=== PATIENT | female | born 1960 | race Caucasian/White ===

== ENCOUNTER 2018-04-18 17:24 | Inpatient (IN) | payer OTHER ==
[~2018-04-18] VITALS: Ht 167.6 cm; Wt 104.8 kg
--- NOTE | ~2018-04-18 | EKG ---
[address] [address] ELECTROCARDIOGRAM REPORT Name: DANIEL ALFARO Room #: 431-P ADM IN M.R.#: [id number] Admission: 04/18/18 Attend Phys: Kelin Mcneil Discharge: Date of : 64 Report #: [id number] THIS REPORT FOR: //name// 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
--- NOTE | ~2018-04-18 | HC ---
[facility] [place] [address] CONSULTATION Name: DANIEL ALFARO Room #: 431-P [facility] [id number] Admission: 04/18/18 Attend Phys: Balwinder Borjas MD Discharge: 04/20/18 Date of : 64 Report #: [id number] THIS REPORT FOR: //name// CC: Kelin William DATE OF SERVICE: 04/18/2018 HISTORY OF PRESENT ILLNESS: This is a 57-year-old female patient who was evaluated by me for migraine headache. I reviewed the patient's records in the computer and I talked to the patient. I talked to the nurses looking after this patient. This patient was admitted here in 2013. She had some right-sided symptoms as well as visual spot in front of the right eye. They did an MRI of the brain and CT angio and that was unremarkable. Their discharge diagnosis was complicated migraine. She was admitted with what looks like right-sided symptoms. She was not using her right side very well. Following that she had a headache. They have tried multiple medications for this headache and I think she just received her first shot of fentanyl. She said the headache was better, the headache just came back. REVIEW OF SYSTEMS: Indicate that she gets headache. She takes Imitrex. Imitrex help her with the headache. On an average, she takes about 1 Imitrex per month. She does not take any narcotic. She does not believe the depression or anxiety makes it worse. She does have a history of hypertension and diabetes. She takes medication for that. She also is on Effexor. The patient also takes propranolol. She does have a history of high cholesterol and smoking and those are her vascular risk factors. This was her relevant 14-point review of system. PAST MEDICAL HISTORY: Positive for episode which was pretty similar to the one she is having now. However, the episode was much less severe than this one is. FAMILY HISTORY: Unremarkable. SOCIAL HISTORY: She has a history of smoking. PHYSICAL EXAMINATION: Indicate she is alert. She is responsive. She can follow simple commands. Her speech, concentration, fund of knowledge and memory is at her baseline. Cranial nerve examination 2-12 looks unremarkable. The spot she had in front of the right eye has disappeared. She has symmetrical strength, sensation, reflexes and tone in all 4 extremities. I could not look at the fundus because of photophobia. She is an obese individual who does not have any dysmorphic features of eyes, [address] [address] CONSULTATION Name: DANIEL ALFARO Room #: 431-P [facility] [id number] Admission: 04/18/18 Attend Phys: Balwinder Borjas MD Discharge: 04/20/18 Date of : 64 Report #: [id number] ears and face. Her vision and hearing looks adequate. Cardiac examination is unremarkable. No respiratory difficulty or rhonchi was noticed. No edema, cyanosis or jaundice. The patient's blood pressure is 133/56, respirations 16, pulse is 73, temperature is 98.2. LABORATORY DATA: WBC count is 7.2 and is normal. Her GFR is 104. She does have some elevated enzymes, but that was present even in 2013. IMPRESSION: This is most likely complicated migraine. The character of the headache is different. I will go ahead and do a CT angio to make sure there is no pathology there. The patient was instructed to stop smoking altogether. She should follow up with the neurologist. She received fentanyl and I will give a call to Dr. Borjas. Because of her size, I think we can limit her narcotic and as an outpatient if she needs medication, she can try Fiorinal and if she takes it every couple of weeks like she is taking that should not be a problem. We do need to check a sed rate on her. RECOMMENDATIONS: If her CT angio is normal for which there is a good chance and if her headache resolves, from my perspective she can be dismissed. I will call Dr. Borjas and discuss the patient with him. <ELECTRONICALLY SIGNED> By: Jonathon Lorenzana MD 04/21/18 1659 [id number] [id number] Jonathon Lorenzana MD /nt
[~2018-04-18 17:24] MED LIST: AMARYL4 MG PO; AMOXICILLIN 50500 MG PO; ASPIRIN325 PO; ATENOLOL 25 MG25 M1 PO; ATENOLOL 50MG T50 M1 PO; COLACE100 MG PO; COZAAR 50 MG TA50 M2 PO; COZAAR100 MG PO; EFFEXOR XR75 MG PO; GLUCOPHAGE XR500 MG PO; GLYBURIDE 1.21.25 MG; HYDROCHLOROTHIA25 M2 PO; HYDROCODONE-AP1 EAC6 PO; IMITREX100 MG PO; INDERAL LA80 MG PO; MELATONIN3 MG PO; METFORMIN HCL500 MG PO; NYSTATIN15 GM; PROAIR HFA8.5 GM INH; SENOKOT-S1 TA1 PO; TYLENOL325 MG PO; UNICOMPLEX M TA1 TA1 PO; VALTREX1000 MG PO; ZOCOR20 MG PO
[2018-04-18 17:30] VITALS: BP 180/80
[2018-04-18 18:40] LABS: ABSOLUTE NEUTROPHILS 5.3 thou/uL (1.4-8.2); BASOPHILS 0.1 % (0.0-2.0); EOSINOPHILS 1.5 % (0.0-3.0); HEMATOCRIT 43.7 % (37.0-47.0); HEMOGLOBIN 15.2 gm/dL (12.0-15.0); LYMPHOCYTES 18.3 % (24.0-44.0); MCH 33.1 pg (26.0-34.0); MCHC 34.8 g/dL (28.0-37.0); MONOCYTES 6.1 % (1.0-8.0); PLATELET COUNT 127 thou/uL (150-400); RDW 13.3 % (10.5-14.5); WBC 7.2 thou/uL (4.0-11.0)
[2018-04-18 18:46] LABS: CALCIUM 9.9 mg/dL (8.5-10.1); CREATININE 0.6 mg/dL (0.6-1.0)
[2018-04-18 20:00] VITALS: BP 128/47
[2018-04-18 20:16] VITALS: BP 163/77
[2018-04-18] MEDS ORDERED: JARDIANCE25 MG PO (20:40)
[2018-04-18] MEDS ORDERED: ATIVAN1 MG PO (20:44)
[2018-04-18] MEDS ORDERED: MELATONIN3 MG PO (20:46)
[2018-04-18] MEDS ORDERED: MULTIVITAMINS1 EAC7 PO (20:47)
[2018-04-18] MEDS ORDERED: ASPIR-TRIN325 MG PO (20:47)
[2018-04-18 21:07] VITALS: BP 148/63
[2018-04-19 04:39] VITALS: BP 136/70
[2018-04-19 08:43] VITALS: BP 133/56
[2018-04-19 20:08] VITALS: BP 137/67
[2018-04-20 04:02] LABS: HEMATOCRIT 40.8 % (37.0-47.0); HEMOGLOBIN 13.8 gm/dL (12.0-15.0); MCH 32.4 pg (26.0-34.0); MCHC 33.9 g/dL (28.0-37.0); MCV 95.6 fL (80.0-100.0); RBC 4.27 mil/uL (4.20-5.00); RDW 13.3 % (10.5-14.5)
[2018-04-20 04:10] LABS: CALCIUM 9.7 mg/dL (8.5-10.1); CREATININE 0.6 mg/dL (0.6-1.0); POTASSIUM 4.1 mmol/L (3.5-5.1)
[2018-04-20 04:47] VITALS: BP 140/91
[2018-04-20 07:45] VITALS: BP 11/69
[2018-04-20] MEDS ORDERED: BUTALB-APAP-CA1 EACH PO (13:16)
[2018-04-20 13:43] VITALS: BP 115/69
[2018-04-20 13:48] VITALS: BP 115/69
== END 2018-04-20 14:56 | disposition home or self-care (01) | DRG 103 ==
LOC: ER 17:24 → 4E 19:16 → EROBS 19:16 → ER 21:08 → 4E 21:08
PROVIDERS: Emergency Medicine; Hospitalist
DX: G43.909 Migraine, unspecified, not intractable, without status migrainosus (principal); E11.9 Type 2 diabetes mellitus without complications; I10 Essential (primary) hypertension; E78.00 Pure hypercholesterolemia, unspecified; F17.210 Nicotine dependence, cigarettes, uncomplicated; E78.5 Hyperlipidemia, unspecified; J06.9 Acute upper respiratory infection, unspecified; J40 Bronchitis, not specified as acute or chronic; Z79.82 Long term (current) use of aspirin; Z79.899 Other long term (current) drug therapy; Z28.21 Immunization not carried out because of patient refusal
CPT/HCPCS: 10183

== ENCOUNTER 2018-09-21 11:46 | Emergency (ER) | payer OTHER ==
[~2018-09-21] VITALS: Ht 167.6 cm; Wt 105.7 kg
[~2018-09-21 11:46] MED LIST changes: +ASPIR-TRIN325 MG PO; +ATIVAN1 MG PO; +BACTRIM DS TAB1 EACH PO; +BUTALB-APAP-CA1 EACH PO; +JARDIANCE25 MG PO; +MULTIVITAMINS1 EAC7 PO
[2018-09-21] MEDS ORDERED: ZOFRAN ODT4 MG PO (16:35)
[2018-09-21] MEDS ORDERED: KEFLEX500 M1 PO (16:35)
[2018-09-21] MEDS ORDERED: NORCO 5-325 TA1 EACH PO (16:35)
[2018-09-21 17:16] VITALS: BP 141/80
== END 2018-09-21 17:17 ==
LOC: ER 11:46
DX: L02.511 Cutaneous abscess of right hand (principal); L02.01 Cutaneous abscess of face; E11.9 Type 2 diabetes mellitus without complications; I10 Essential (primary) hypertension; E78.00 Pure hypercholesterolemia, unspecified; G43.909 Migraine, unspecified, not intractable, without status migrainosus; Z90.49 Acquired absence of other specified parts of digestive tract; F17.210 Nicotine dependence, cigarettes, uncomplicated

== ENCOUNTER 2018-09-24 07:02 | Inpatient (IN) | payer OTHER ==
[~2018-09-24] VITALS: Ht 152.4 cm; Wt 105.7 kg
[~2018-09-24 07:02] MED LIST changes: +KEFLEX500 M1 PO; +NORCO 5-325 TA1 EACH PO; +ZOFRAN ODT4 MG PO
[2018-09-24 14:00] VITALS: BP 151/78
--- NOTE | 2018-09-24 14:56 | NUR ---
PATIENT ARRIVED ON UNIT ALERT XS 4 STATES PAIN WILL HAVE DOCTOR OR NCP ASSESS. ADMISSION PAPERWORK COMPLETED. WILL HAVE ECHO TOMMORROW. IV TO BE PUT IN PLACE. CONSULTS IN PLACE ORDERED.
[2018-09-24 15:50] LABS: ABSOLUTE NEUTROPHILS 5.5 thou/uL (1.4-8.2); BASOPHILS 0.1 % (0.0-2.0); EOSINOPHILS 2.5 % (0.0-3.0); HEMATOCRIT 40.3 % (37.0-47.0); HEMOGLOBIN 13.7 gm/dL (12.0-15.0); LYMPHOCYTES 22.8 % (24.0-44.0); MCH 32.5 pg (26.0-34.0); MCV 95.6 fL (80.0-100.0); MONOCYTES 8.3 % (1.0-8.0); PLATELET COUNT 190 thou/uL (150-400); POLYS 66.3 % (36.0-66.0); RBC 4.21 mil/uL (4.20-5.00); RDW 12.8 % (10.5-14.5); WBC 8.3 thou/uL (4.0-11.0)
--- NOTE | 2018-09-24 16:00 | NUR ---
WOUND CARE PICURES OF RIGHT HAND/ PALM AREA AND RIGHT NECK AREA TAKEN AND IN CHART.
[2018-09-24 16:11] LABS: ALBUMIN 4.1 g/dL (3.4-5.0); CALCIUM 10.4 mg/dL (8.5-10.1); CREATININE 0.8 mg/dL (0.6-1.0); MAGNESIUM 1.7 mg/dL (1.8-2.4); POTASSIUM 4.2 mmol/L (3.5-5.1); TOTAL BILIRUBIN 0.4 mg/dL (<0.1-1.0); TOTAL PROTEIN 7.8 g/dL (6.4-8.2)
[2018-09-24 19:31] VITALS: BP 110/54
[2018-09-24] MEDS ORDERED: OZEMPIC0.25 MG/0. SUBQ (20:18)
[2018-09-24] MEDS ORDERED: DICLOFENAC SODI75 MG PO (20:24)
--- NOTE | 2018-09-25 03:55 | NUR ---
ASSUMED CARE AT 1900, ASSESSMENT COMPLETED. PT DENIES SOA OR NAUSEA. REPORTS PAIN IN HAND IS TOLERABLE, DOESN'T REQUIRE ANY PAIN MEDS THIS SHIFT. IV ABX INFUSING OVERNIGHT. NPO AT MIDNIGHT FOR I&D OF TWO WOUND SITES. DRESSING TO RIGHT HAND C/D/I, AND BANDAIDS IN PLACE OVER SITE ON THE NECK. PT UP AD RAZIA IN ROOM, NO OTHER CONCERNS, WILL CONTINUE TO MONITOR.
[2018-09-25 04:20] VITALS: BP 126/63
[2018-09-25 07:49] VITALS: BP 111/45
--- NOTE | 2018-09-25 08:14 | HC ---
[facility] [place] [address] [place] [address] CONSULTATION Name: DANIEL ALFARO Room #: 420-P [facility] IN M.R.#: [id number] Admission: 09/24/18 ������������������ Attend Phys: Aryan Patino MD Discharge: ������������������ Date of : 64 Report #: [id number] THIS REPORT FOR: //name// CC: Aryan Chow DATE OF SERVICE: 09/24/2018 TYPE OF REPORT: Infectious disease consultation. ATTENDING PHYSICIAN: Gumaro Chow M.D. REASON FOR CONSULTATION: Staphylococcus aureus infection, right occipital region, left lower eyelid and right hand palm. HISTORY OF PRESENT ILLNESS: The patient is a 58-year-old white woman who had developed skin lesions on the above-mentioned areas. They were cultured and Staphylococcus aureus, oxacillin sensitive was isolated by her primary physician. She was initially prescribed Bactrim-DS 1 tablet b.i.d., but she failed to improve. She is evaluated in the wound care center and undergoes incision and drainage of the right hand lesion and she was advised admission. The patient not systemically ill. PAST MEDICAL HISTORY: 1. History of diabetes mellitus for a number of years, on treatment with metformin and glimepiride. 2. History of hypertension. 3. Dyslipidemia. 4. Hypertension. 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 This diagnosis was reached through the skin biopsy. I believe the patient had cholecystectomy in the past as well as . SOCIAL HISTORY: See H and P, old records. FAMILY HISTORY: See H and P, old records. REVIEW OF SYSTEMS: As above and essentially noncontributory. PHYSICAL EXAMINATION: GENERAL: A well-developed, nontoxic-looking woman, in no distress. VITAL SIGNS: Pending. HEENMT: Head normocephalic and atraumatic. On the right occipital area behind the right ear lobe, there is an area of purulence and abscess formation that is spontaneously draining. There is some crusting in the tissues. There is another lesion on the left lower eyelid much smaller as well as a lesion on the [facility] [address] [address] CONSULTATION Name: DOMINICDANIEL SAEZ Room #: 420-P [facility] IN [facility].#: [id number] Admission: 09/24/18 ������������������ Attend Phys: Aryan Patino MD Discharge: ������������������ Date of : 64 Report #: [id number] palm of the right hand. Mouth revealed upper and lower plates. NECK: Supple. No thyromegaly or lymphadenopathy. LUNGS: Clear to auscultation. BREASTS: Deferred. HEART: S1 and S2. No gallop or murmur. ABDOMEN: Soft. No masses or megaly. EXTREMITIES: Reveal palpable maculopapular lesions on both forearms. The patient readily tells me it is related to her granuloma annulare. NEUROLOGICAL: Grossly within normal limits. LABORATORY DATA: Cultures obtained at her primary physician revealed growth of Staphylococcus aureus, oxacillin sensitive. ASSESSMENT: 1. Staphylococcus aureus abscesses, right occipital region, left lower eyelid and palm of right hand 2. Diabetes mellitus. SUGGESTIONS: Recommend Ancef 2 grams IV every 8 hours. Local wound care. Further recommendation pending results of laboratory testing. Dr. Gumaro Chow, thank you for requesting my suggestions. ��������������������������������������������� <ELECTRONICALLY SIGNED> ���������������������������������������� By: Ronal Barry MD ��������������������������������������������� 09/25/18 0814 1313 2245 Ronal Barry MD /nt
[2018-09-25 08:38] LABS: HEMATOCRIT 40.2 % (37.0-47.0); HEMOGLOBIN 13.7 gm/dL (12.0-15.0); MCH 32.5 pg (26.0-34.0); MCHC 33.9 g/dL (28.0-37.0); MCV 95.7 fL (80.0-100.0); RBC 4.2 mil/uL (4.20-5.00); WBC 5.6 thou/uL (4.0-11.0)
[2018-09-25 08:45] LABS: CALCIUM 9.7 mg/dL (8.5-10.1); CREATININE 0.7 mg/dL (0.6-1.0); POTASSIUM 4.9 mmol/L (3.5-5.1)
[2018-09-25 08:50] LABS: APTT 26.6 Seconds (24.5-32.8); INR 1.1; PROTIME 11.1 Seconds (9.3-11.4)
--- NOTE | 2018-09-25 09:19 | TEE ---
[facility] [address] [place] [address] TRANSESOPHAGEAL ECHOCARDIOGRAM Name: DANIEL ALFARO Room #: 420-P [facility] IN M.R.#: [id number] ������������� Admission: 09/24/18 ������������� Attend Phys: Aryan Patino MD Discharge: ��� ������������� ��� Date of : 64 Date of Service: 09/25/189[address] �� Report #: [id number] �������� ��������������������������������������������[id number] THIS REPORT FOR: //name// APPROVED REPORT Study performed: 09/25/2018 08:37:51 EXAM: Transesophageal Echocardiogram Patient Location: [facility] Room #: 420 Status: routine BSA: 1.99 HR: 66 bpm BP: 123/54 mmHg Rhythm: NSR Other Information Study Quality: Good Indications Multiple septic emboli, possible cardioembolic source. Procedure After obtaining informed consent, patient underwent transesophageal echo in the [employer]. Type of Sedation : Conscious Sedation Sedation was achieved intravenously with: Versed (4) Fentanyl (50) Transesophageal probe was inserted and advanced into esophagus without difficulty by Garry Brown MD. The KRISTINA was performed without complications. Throughout the procedure, the blood pressure, pulse oximetry, cardiac rhythm, and rate were monitored. The patient tolerated the procedure without adverse effects. Recovery from conscious sedation was uneventful and vital signs were stable. Left Ventricle The left ventricle is normal size. There is normal LV segmental wall motion. Left ventricular systolic function is normal. LVEF is 60-65%. Right Ventricle The right ventricle is normal size. The right ventricular systolic [facility] [address] [place] [address] TRANSESOPHAGEAL ECHOCARDIOGRAM Name: DANIEL ALFARO Room #: 420-P ADM IN M.R.#: [id number] ������������� Admission: 09/24/18 ������������� Attend Phys: Aryan Patino MD Discharge: ��� ������������� ��� Date of : 64 Date of Service: 09/25/18 0918 �� Report #: [id number] �������� ��������������������������������������������[id number] function is normal. Atria No thrombus is visualized in the left atrium or appendage. No shunting noted by contrast bubble injection. The right atrium size is normal. Aortic Valve Aortic valve is trileaflet. No aortic regurgitation is present. There is no aortic valvular stenosis. Mitral Valve The mitral valve is normal in structure. Mild mitral regurgitation. No evidence of mitral valve stenosis. Tricuspid Valve The tricuspid valve is normal in structure. Trace tricuspid regurgitation. Pulmonic Valve The pulmonary valve is normal in structure. Trace pulmonic regurgitation. Great Vessels The aortic root is normal in size. The ascending aorta is normal in size. IVC is normal in size and collapses >50% with inspiration. Pericardium There is no pericardial effusion. Critical Notification Physician Notified <Conclusion> Left ventricular systolic function is normal. There is normal LV segmental wall motion. LVEF is 60-65%. No thrombus is visualized in the left atrium or appendage. No shunting noted by contrast bubble injection. Aortic valve is trileaflet. No aortic regurgitation or stenosis. The mitral valve is normal in structure. Mild mitral regurgitation. There is no pericardial effusion. [facility] [address] [place] [address] TRANSESOPHAGEAL ECHOCARDIOGRAM Name: DOMINICDANIEL SAEZ Room #: 420-P [facility] IN .R.#: [id number] ������������� Admission: 09/24/18 ������������� Attend Phys: Aryan Patino MD Discharge: ��� ������������� ��� Date of : 64 Date of Service: 09/25/18917 �� Report #: [id number] �������� ��������������������������������������������[id number] No vegetations ��������������������������������������������� <ELECTRONICALLY SIGNED> ���������������������������������������� By: Garry Brown MD, [facility] ��������������������������������������������� 09/25/18917 7 7 Garry Brown MD, FAC /INF
--- NOTE | 2018-09-25 09:19 | NUR ---
PT CONT TO RECOVER POST KRISTINA. VSS. DR. Jimy SARAVIA HERE TO SEE PT AT BEDSIDE.
--- NOTE | 2018-09-25 09:49 | NUR ---
PT WAKES TO NAME AND RESPONDS APPROP. BP RESPONDS PT WAKES. IVF GIVEN FOR SBP 80-90. SBP NOW 105-110. DENIES PAIN. NO C/O. REPORT CALLED TO FLOOR RN.
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
--- NOTE | 2018-09-25 13:30 | NUR ---
WOUND CONSULT: PT. WAS SEEN TODAY BY DR. ANSARI AND MYSELF. PT. WAS ADMITTED FROM THE WOUND CLINIC YESTERDAY FOR EVALUATION OF ABCESS TO HER RIGHT HAND AND NECK. PT. WILL BE GOING TO OR TODAY FOR DEBRIDEMENT TODAY. RECOMMENDATIONS: WOUND CARE TO ALL SITES: GENTLY CLEANSE WITH WOUND CLEANSER OR NORMAL SALINE, COVER WITH OPTIFOAM BORDER, COMPLETE CARES M/W/F AND PRN SOILAGE. PT. AND STAFF NURSE WERE INSTRUCTED ON WOUND CARE.
[2018-09-25 13:51] VITALS: BP 128/57
[2018-09-25 16:20] VITALS: BP 149/62
--- NOTE | 2018-09-25 16:36 | NUR ---
RECEIVED PT BACK FROM PACU S/P I&D OF RIGHT HAND AND RIGHT WOUND BEHIND EAR. PT DENIES PAIN AT THIS TIME. PT IS AWAKE, ALERT/ORIENTED X4. PT APPEARS CYANOTIC TO LIPS BUT O2 SAT 90'S ON ROOM AIR, NO APPARENT RESP DISTRESS. DRESSING TO RIGHT HAND IS CDI. DRESSING BEHIND RIGHT EAR IS INTACT WITH MINIMAL BLOOD NOTED. FAMILY AT BEDSIDE. VITAL SIGNS STABLE.
--- NOTE | 2018-09-26 04:04 | NUR ---
PATIENT ALERT AND ORIENTED X4. UP ADLIB IN HALLWAY. IVF INFUSING W/O COMPLICATION. RIGHT HAND PAIN, MEDICATED AND USE OF ICE PACK WITH ELEVATION WHICH GAVE RELIEF ENOUGH TO SLEEP. BS MONITORED PER ORDER. RESTING QUIETLY. WILL MONITOR.
[2018-09-26 06:38] LABS: HEMATOCRIT 37.6 % (37.0-47.0); HEMOGLOBIN 12.6 gm/dL (12.0-15.0); MCH 32.3 pg (26.0-34.0); MCHC 33.5 g/dL (28.0-37.0); MCV 96.4 fL (80.0-100.0); RBC 3.9 mil/uL (4.20-5.00); RDW 13.1 % (10.5-14.5); WBC 5.2 thou/uL (4.0-11.0)
[2018-09-26 06:58] LABS: CALCIUM 9.1 mg/dL (8.5-10.1); CREATININE 0.6 mg/dL (0.6-1.0); MAGNESIUM 1.7 mg/dL (1.8-2.4); POTASSIUM 4.1 mmol/L (3.5-5.1)
[2018-09-26 07:50] VITALS: BP 114/51
--- NOTE | 2018-09-26 16:14 | NUR ---
ASSUMED PATIENT AND CARES AT 0715, PATIENT IN BED ON PHONE AND WATCHING TV, A&OX4, LEFT FOREARM SALINE LOCK PATENT WITH NS @100ML/HR INFUSING, RIGHT HAND ELEVATED ON PILLOW WITH ICE PACK, DRESSING TO RIGHT HAND AND RIGHT NECK NOTED WITH SMALL DRAINAGE, RECEIVED PRN PAIN MEDICATION PRIOR TO SHIFT CHANGE, PERSONAL BELONGINGS AND CALL LIGHT IN REACH, WILL CONTINUE TO MONITOR
[2018-09-26 19:28] VITALS: BP 146/80
--- NOTE | 2018-09-27 04:11 | NUR ---
PATIENT ALERT AND ORIENTED X4. UP ADLIB IN ROOM. IVF INFUSING W/O COMPLICATION. MEDICATED FOR PAIN X1 DURING THE NIGHT AT TIME OF NOTE. BS MONITORED PER ORDER. NO BM FROM [facility] GIVEN ON FRIDAY MORNING. DRESSINGS DRY AND INTACT. WILL MONITOR.
[2018-09-27 07:45] VITALS: BP 143/83
--- NOTE | 2018-09-27 10:11 | NUR ---
PATIENT CARE WAS ASSUMED AT 0715.PATIENT IS ALERT AND ORIENTED X4.PATIENT HAS DRESSINGS ON BOTH SITES INTACT.PATIENT HAS NO COMPLAINS OF PAIN AT THIS TIME. PATIENT WAS CONCERN HAVING A BM TODAY, HAS NOT HAD BM IN A FEW DAYS.IV IS INTACT INFUSING FLUIDS.PATIENT IS UP ABLIB WITHOUT ANY ISSUES.CALL LIGHT, PHONE, AND PERSONAL BELONGINGS ARE WITHIN REACH.
--- NOTE | 2018-09-27 11:16 | NUR ---
PATIENT CARE WAS ASSUMED AT 0715.PATIENT IS ALERT AND ORIENTED X4.PATIENT HAS HAD COLON PREP THROUGHOUT THE NIGHT.PATIENT HAS HAD LOOSE STOOL.PATIENT WILL HAVE COLONSCOPY IN THE AM.PATIENT HAS IV INTACT WITH FLUIDS INFUSING.PATIENT HAS BEEN NPO AFTER MIDNIGHT.PATIENT IS ABLE TO AMBULATE WITH STANDBY ASSIST WITH WALKER.PATIENT HAS SOME STRESS INCONTINENCE, AND HAS A BRIEF IN PLACE.PATIENT HAD VITALS. NO PAIN AT THIS TIME.CALL LIGHT,PHONE, AND PERESONAL BELONGINGS ARE WITHIN REACH.
[2018-09-27 19:53] VITALS: BP 187/95
--- NOTE | 2018-09-28 06:28 | NUR ---
PATIENT ALERT AND ORIENTED X4. UP ADLIB, WALKING IN HALLWAY. IVF INFUSING W/O COMPLICATION. B/P AND TEMP UP AT BEGINNING OF SHIFT: TEMP 100.7 AND B/P 187/95. MEDICATED FOR BOTH PER PRN WITH GOOD RESULTS: TEMP 98.1 AND B/P 144/80. PATIENTS FACE WAS FLUSH WITH SWELLING UNDER EYES. DENIES PAIN. DRESSINGS ARE D/I. BS MONITORED PER ORDER. RESTING QUIETLY, WILL MONITOR.
[2018-09-28 09:50] VITALS: BP 108/47
--- NOTE | 2018-09-28 10:16 | NUR ---
SW reviewed chart and spoke with nursing. Pt was transferred to [facility] from and is progressing towards goals for discharge. Per ID, pt will be on PO abx at time of discharge. Plan is for pt to d/c home when medically stable. [facility]UTH is following to assist as needed with discharge planning.
[2018-09-28] MEDS ORDERED: KEFLEX500 M1 PO (14:04)
[2018-09-28] MEDS ORDERED: ACETAMINOPHEN325 M1 PO (14:04)
[2018-09-28] MEDS ORDERED: HYDROCODON-ACE1 EAC7 PO (14:04)
[2018-09-28 17:12] VITALS: BP 187/95
--- NOTE | 2018-09-28 17:13 | NUR ---
ON-GOING ASSESSMENT: PT HAS ORDERS TO DISCHARGE HOME TODAY WITH HH. CM MET WIHT PATIENT AT THE BEDSIDE TO DISCUSS [facility] CAN ACCEPT PATIENT FOR HH. PT STATING SHE DOES NOT WANT HH OR FEEL SHE NEEDS IT. 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 PT STATES HER DAUGHTERS ALSO CAN HELP HER IF NEEDED. PT DECLINING HH. CM NOTIFIED [facility] WELL ATTENDING.
--- NOTE | 2018-09-28 17:25 | NUR ---
WOUND FOLLOW UP: PT. WAS SEEN TODAY BY DR. TAYLOR AND MYSELF. PT. WOUNDS ARE CLINCALLY BETTER TODAY. RECOMMENDATIONS: CONTINUE WITH CURRENT PLAN OF CARE. PT. AND STAFF NURSE WERE INSTRUCTED ON PLAN OF CARE.
--- NOTE | 2018-09-28 18:57 | NUR ---
ASSUMED CARE OF PATIENT AT 0715, PATIENT ALERT AND ORIENTED X 4. PATIENT UP AD RAZIA. PATIENT DENIES PAIN THIS SHIFT. PATIENT HAS RIGHT HAND WOUND AND RIGHT NECK WOUND, DRESSINGS C/D/I. PATIENT HAD MANY COMPLIANTS
--- NOTE | 2018-09-30 09:15 | HC ---
[facility] [place] [address] CONSULTATION Name: DOMINICDANIEL Roly Room #: 223-P [facility] IN M.R.#: [id number] Admission: 09/24/18 ������������������ Attend Phys: Aryan Patino MD Discharge: 09/28/18 ������������������ Date of : 64 Report #: [id number] THIS REPORT FOR: //name// CC: Aryan Chow DATE OF SERVICE: 09/25/2018 WOUND CARE CONSULTATION CHIEF COMPLAINT: Multiple abscesses. REQUESTING PHYSICIAN: Dr. Aryan Patino. HISTORY OF PRESENT ILLNESS: This is a 58-year-old white female with past medical history of diabetes who was admitted yesterday through the wound center for general surgical evaluation and drainage of an abscess behind her right ear. The patient stated that approximately on 09/14/2018, she noted she had a lump behind her right ear. She went to her primary care physician who now twice has done a bedside incision and drainage. The patient states, however, the abscess has been persistent and actually has gotten larger. The patient when seen in the wound center yesterday was felt the patient required surgical debridement in the operating room with sedation as well as IV antibiotics. The patient was seen by Dr. Barry and is getting the antibiotic coverage at this time. Dr. Balderrama has seen the patient and will provide surgical debridement of the wound behind the ear. The patient also states that she noted she had an abscess on the palmar aspect of her right hand, which was I and D'd yesterday in the wound clinic. 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 The patient does have a chronic skin condition that has been well controlled. The patient denies fevers or chills. The patient denies any other associated complaints. PAST MEDICAL HISTORY: Significant for diabetes, hypertension, hypercholesterolemia, and chronic skin condition which is stable. CURRENT MEDICATIONS: Multiple including metformin. I reviewed the patient's medication list. DRUG ALLERGIES: None. SOCIAL HISTORY: The patient smokes half pack of cigarettes daily. Denies alcohol use. 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 FAMILY HISTORY: Not pertinent to current medical condition. [facility] [address] [place] [address] CONSULTATION Name: DANIEL ALFARO Room #: 223-P [facility] IN [facility]#: [id number] Admission: 09/24/18 ������������������ Attend Phys: Aryan Patino MD Discharge: 09/28/18 ������������������ Date of : 64 Report #: [id number] REVIEW OF SYSTEMS: CONSTITUTIONAL: The patient denies fevers, but has had intermittent chills and sweats. HEENT: Eyes: No complaints. ENT: No complaints. NEUROLOGIC: The patient denies numbness, tingling, weakness in arms or legs. The patient does have occasional headache consistent with migraines. CARDIAC: The patient denies chest pain, palpitations, peripheral edema. RESPIRATORY: The patient denies shortness of breath, cough or wheezes. GASTROINTESTINAL: The patient denies nausea, vomiting or abdominal pain. GENITOURINARY: The patient denies urgency or frequency. MUSCULOSKELETAL: No complaints. SKIN: The patient has an abscess behind her right ear as well as an abscess on the palmar aspect of the right hand and a lesion below her left eye. PHYSICAL EXAMINATION: VITAL SIGNS: Temp 36.5, pulse 68, respiratory rate 18, BP 143/83. GENERAL: This is an alert and oriented x 3, pleasant, obese white female who is in no obvious distress. HEENT: Normocephalic. There is a pustular lesion behind the right ear, which is tender to palpation with erythema, warmth, and purulent drainage. It is fluctuant but no significant odor. It is tender to palpation. No other associated ulcerations or abscesses are noted on the scalp, however below the left eyelid is an erythematous region, which is tender to palpation but not fluctuant. There are no signs of any drainage. Pupils are round. Sclerae white. Mucous membranes are moist with no intraoral lesions. NECK: Supple and otherwise nontender with moderate lymphadenopathy, specifically around the area of the right posterior auricular abscess. LUNGS: Clear. HEART: Regular. ABDOMEN: Obese, soft, otherwise nontender. EXTREMITIES: The patient moves all extremities without difficulty. Distal neurovascular is otherwise intact. Palmar aspect of the right hand over the hypothenar eminence is a drained abscess which is tender to palpation, but no signs of any actual purulent drainage at this time. There is minimal erythema. No other associated lesions noted in the rest of the fingers on the right hand. Left hand and fingers are totally without any signs of abscesses. NEUROLOGIC: Cranial nerves 2-12 are grossly intact. Motor and sensory grossly intact. LABORATORY VALUES: White count 8.3, hemoglobin 13.7. Albumin is 4.1. IMPRESSION: 1. Right posterior auricular abscess. 2. Right palmar abscess on the hypothenar eminence, status post I and D. 3. Erythematous lesion on the lower eyelid. 4. Diabetes mellitus type 2. [address] [address] CONSULTATION Name: DANIEL ALFARO Room #: 223-P [facility] M.R.#: [id number] Admission: 09/24/18 ������������������ Attend Phys: Aryan Patino MD Discharge: 09/28/18 ������������������ Date of : 64 Report #: [id number] 5. Obesity. 6. Generalized debility. 7. History of chronic superficial skin condition. PLAN: Infectious Disease and General Surgery have been consulted. I will continue to follow the patient from a wound care point of view. We will use Bactroban to the palmar aspect of the hand as well as Optifoam over the right posterior auricular abscess pending I and D. Continue IV antibiotics. We will maximize the patient's oral protein supplementation for continued healing. We will continue to follow the patient. I appreciate the ability to consult. ��������������������������������������������� <ELECTRONICALLY SIGNED> ���������������������������������������� By: Gumaro Chow MD ��������������������������������������������� 09/30/18 0915 [id number] Gumaro Chow MD /nt
== END 2018-09-28 18:26 | disposition home health service (06) | DRG 988 ==
LOC: HYPER 07:02 → 4E 13:20 → SICU 09-25 14:14
PROVIDERS: Nurse Practitioner; Surgery; ADMIT Internal Medicine
PROC: B24BZZ4 Ultrasonography of Heart with Aorta, Transesophageal (ICD-10-PCS; principal; 2018-09-25)
PROC: 0J940ZZ Drainage of Right Neck Subcutaneous Tissue and Fascia, Open Approach (ICD-10-PCS; 2018-09-25)
PROC: 0J9J0ZZ Drainage of Right Hand Subcutaneous Tissue and Fascia, Open Approach (ICD-10-PCS; 2018-09-25)
DX: I76 Septic arterial embolism (principal); L02.511 Cutaneous abscess of right hand; Z68.42 Body mass index [BMI] 45.0-49.9, adult; L03.113 Cellulitis of right upper limb; L03.221 Cellulitis of neck; I74.9 Embolism and thrombosis of unspecified artery; E83.52 Hypercalcemia; L92.0 Granuloma annulare; H60.01 Abscess of right external ear; B95.61 Methicillin susceptible Staphylococcus aureus infection as the cause of diseases classified elsewhere; L72.3 Sebaceous cyst; F41.9 Anxiety disorder, unspecified; E11.9 Type 2 diabetes mellitus without complications; E66.9 Obesity, unspecified; G43.909 Migraine, unspecified, not intractable, without status migrainosus; E78.00 Pure hypercholesterolemia, unspecified; F17.210 Nicotine dependence, cigarettes, uncomplicated; I10 Essential (primary) hypertension; E78.5 Hyperlipidemia, unspecified; Z79.84 Long term (current) use of oral hypoglycemic drugs; Z98.891 History of uterine scar from previous surgery; Z90.49 Acquired absence of other specified parts of digestive tract; Z98.51 Tubal ligation status; Z86.14 Personal history of Methicillin resistant Staphylococcus aureus infection
CPT/HCPCS: 10783; 15002; 50010; 50101; 50386; 50403; 62110; 62900; 70005

== ENCOUNTER → 2018-10-06 | Outpatient (CLI) | payer OTHER ==
[~2018-10-06] MED LIST changes: +ACETAMINOPHEN325 M1 PO; +DICLOFENAC SODI75 MG PO; +HYDROCODON-ACE1 EAC7 PO; +OZEMPIC0.25 MG/0. SUBQ
== END ==
LOC: HYPER 06:45
DX: T81.89XD Other complications of procedures, not elsewhere classified, subsequent encounter (principal); I10 Essential (primary) hypertension; E78.5 Hyperlipidemia, unspecified; L02.01 Cutaneous abscess of face; L02.511 Cutaneous abscess of right hand; L02.11 Cutaneous abscess of neck; L98.6 Other infiltrative disorders of the skin and subcutaneous tissue; E78.00 Pure hypercholesterolemia, unspecified; G43.909 Migraine, unspecified, not intractable, without status migrainosus; F17.200 Nicotine dependence, unspecified, uncomplicated; Z79.84 Long term (current) use of oral hypoglycemic drugs; Z86.73 Personal history of transient ischemic attack (TIA), and cerebral infarction without residual deficits; Z86.718 Personal history of other venous thrombosis and embolism

== ENCOUNTER 2020-01-07 23:46 | Emergency (ER) | payer OTHER ==
[~2020-01-07] VITALS: Ht 175.3 cm; Wt 102.5 kg
[2020-01-08] MEDS ORDERED: NORCO 5-325 TA1 EAC1 PO (02:20)
[2020-01-08 02:43] VITALS: BP 92/50
== END 2020-01-08 02:45 | disposition home or self-care (01) ==
LOC: ER 23:46
DX: S52.502A Unspecified fracture of the lower end of left radius, initial encounter for closed fracture (principal); S52.612A Displaced fracture of left ulna styloid process, initial encounter for closed fracture; S09.90XA Unspecified injury of head, initial encounter; I10 Essential (primary) hypertension; E11.9 Type 2 diabetes mellitus without complications; E78.5 Hyperlipidemia, unspecified; F17.210 Nicotine dependence, cigarettes, uncomplicated; Z79.899 Other long term (current) drug therapy; Z79.82 Long term (current) use of aspirin; W10.9XXA Fall (on) (from) unspecified stairs and steps, initial encounter; Y93.89 Activity, other specified; Y92.89 Other specified places as the place of occurrence of the external cause; Y99.8 Other external cause status